=== PATIENT | female | born 1950 | race Two or more races ===

== ENCOUNTER 2022-12-05 10:19 | Outpatient (CLI) | payer OTHER | END 2022-12-05 10:20 | disposition home or self-care (01) | LOC: LAB 10:19 | PROVIDERS: ATTEND Specialist | DX: Z01.811 Encounter for preprocedural respiratory examination (principal); D50.9 Iron deficiency anemia, unspecified; D68.9 Coagulation defect, unspecified; E83.51 Hypocalcemia; N39.0 Urinary tract infection, site not specified ==

== ENCOUNTER 2022-12-22 06:12 | Day surgery (SDC) | payer OTHER ==
[~2022-12-22] VITALS: Ht 157.5 cm; Wt 66.2 kg
[~2022-12-22 06:12] MED LIST: D3 + K2 DOTS 11 EACH PO; FOLIC ACID0.8 M1 PO; METHOTREXA25 MG/1 M5 SUBCUTANEO
== END 2022-12-22 18:25 | disposition home or self-care (01) ==
LOC: CIR.AMB 06:12
PROVIDERS: ATTEND Specialist
DX: N84.1 Polyp of cervix uteri (principal); N84.0 Polyp of corpus uteri; Z20.822 Contact with and (suspected) exposure to COVID-19; Z86.16 Personal history of COVID-19

== ENCOUNTER 2023-06-06 08:16 | Inpatient (IN) | payer OTHER ==
[~2023-06-06] VITALS: Ht 157.5 cm; Wt 68.5 kg
[2023-06-06] MEDS ORDERED: VITAMIN C500 M6 PO (09:17)
[2023-06-06] MEDS ORDERED: VITAMIN B PO (09:18)
[2023-06-11] MEDS ORDERED: METHOTREXATE2.5 MG (10:44)
[2023-06-11] MEDS ORDERED: MONTELUKAST SOD10 MG (10:44)
[2023-06-11] MEDS ORDERED: B COMPLEX1 EACH (10:47)
[2023-06-11] MEDS ORDERED: FOLIC ACID1 MG (10:47)
[2023-06-13] MEDS ORDERED: INTEGRA PLUS C1 EACH PO (16:08)
[2023-06-13] MEDS ORDERED: XARELTO10 MG PO (16:08)
[2023-06-13] MEDS ORDERED: OXYC1TAB9 PO (16:08)
[2023-06-13] MEDS ORDERED: BACTRIM DS TAB1 EACH PO (16:08)
== END 2023-06-13 17:55 | DRG 470 ==
LOC: O/R 06-11 05:51 → SURH 06-11 05:51 → SURG 06-11 08:16 → SURH 06-11 10:51
PROVIDERS: ADMIT Orthopaedic Surgery Sports Medicine; ATTEND Orthopaedic Surgery Sports Medicine
PROC: 0SRD0J9 Replacement of Left Knee Joint with Synthetic Substitute, Cemented, Open Approach (ICD-10-PCS; principal; 2023-06-11 10:00)
DX: M17.12 Unilateral primary osteoarthritis, left knee (principal)